=== PATIENT | female | born 1965 | race Caucasian/White ===

== ENCOUNTER → 2017-09-04 | Outpatient (CLI) | payer OTHER ==
--- NOTE | 2017-09-04 14:09 | CT ---
EXAMINATION TYPE: CT iac w con DATE OF EXAM: 09/04/2017 COMPARISON: NONE HISTORY: Hearing loss in both ears. No prior. Scanned by: LJ and CS CT DLP: 219 mGycm Automated exposure control for dose reduction was used. CONTRAST: CT scan of the IACs is performed with IV Contrast, patient injected with 100ml mL of Omnipaque 300. FINDINGS: There is opacification through the right mastoid air cells. This extends into the middle ea r. The scutum appears intact. The ossicles are poorly visualized and may has some resorption within t he soft tissue density. The cochlea and semicircular canals appear intact. No septal erosion is ident ified no enhancement is evident. The pituitary stalk is midline. The pituitary appears unremarkable. Vascular structures as visualized appear unremarkable. External auditory canals are patent. Left mastoid air cells internal auditory c anal cochlea and semicircular canals are normal. The left middle ears normal. The incus and malleus a re normal orientation on the left. The internal auditory canals are patent. No expansion or erosion is evident. No abnormal enhancement is evident. IMPRESSION: 1. Opacification through the right mastoid air cells and right middle ear. Consider middle ear infect ion mastoiditis. 2. There may be erosion of the right-sided ossicles. No abnormal enhancement is evident. Close follow -up is recommended. Cholesteatoma may be within the differential. 3. No suspicious changes left external auditory canal, middle ear or internal auditory canal.
== END | disposition home or self-care (01) ==
LOC: RADCTMAIN 08:20
PROVIDERS: ATTEND Otolaryngology
DX: H74.8X1 Other specified disorders of right middle ear and mastoid (principal); H93.3X9 Disorders of unspecified acoustic nerve; H93.19 Tinnitus, unspecified ear
CPT/HCPCS: 70481; Q9967